=== PATIENT | male | born 1965 | race African-American/Black ===

== ENCOUNTER 2017-08-17 18:00 | Emergency (ER) | payer MEDICAID, SELFPAY ==
[2017-08-17 18:01] VITALS: BP 128/85; PULSE 109; RESP 16; TEMP 37.4; O2SAT 99; BMI 25.1
--- NOTE | 2017-08-17 18:19 | ED.DCSUM_ITS ---
- ER Visit Summary Date of Service: 08/17/17 Chief Complaint: Cough History of Present Illness: The patient is a 52 M presenting with cough, rhinorrhea, sore throat. Patient states this started on . He has a productive cough. He has had subjective fever and chills. He has diffuse myalgias. No abdominal pain, nausea, vomiting. No chest pain or shortness of breath. He is a smoker. Physical Examination: Vitals are stable. Temperature 99.4 Alert no acute distress. HEENT exam mild pharyngeal erythema with no exudate, uvula midline Neck is supple. No meningismus Lungs are clear and equal bilaterally. Heart is regular and tachycardic Abdomen is soft nontender nondistended. Extremities are unremarkable. Skin is warm and dry. No rash No focal neurologic deficit. Remainder of exam is unremarkable. Emergency Department Course and Treatment: Patient given IV fluids, Tylenol. CBC, chemistries are unremarkable. Strep and influenza are negative. Chest x- ray shows no acute process. Patient resting comfortably in the ED on reevaluation. He is given a prescription for Tessalon Perles. Advised to follow-up with Dr. Corbin iron caster for no doc. Advised return to ED for worsening complaints. Disposition: Discharge home Impression: Bronchitis This note was generated with [employer] dictation software. It may contain incorrect words, spelling, and punctuation that were not noted in review of the chart prior to signing ED Disposition - Plan for ED Patient: Chief Complaint: Cold Sx Referrals: Care Physician,No Primary [Primary Care Provider] -
[2017-08-17] MEDS: 0.9% Normal Saline 1,000 ML 999 ML IV (18:29)
[2017-08-17] MEDS: Acetaminophen 500 MG Tablet 1000 MG PO (18:30)
[2017-08-17 18:47] LABS: Absolute Lymphocyte Count 1.28 X10^3/ul (0.83-4.51); Absolute Neutrophil Count 4.7 X10^3/uL (2.0-7.7); Basophil# 0.02 X10^3/uL; Basophil% 0.3 % (0-1); Eosinophil# 0.06 X10^3/uL; Eosinophils% 0.9 % (0-5); Hematocrit 42.8 % (40-54); Hemoglobin 14.7 g/dl (13.0-16.5); Lymphocyte # 1.28 X10^3/ul (4.0); Mean Corp Hgb Conc 34.3 g/gl (32-36); Mean Corpuscular Hgb 31.1 pg (27.0-32.0); Mean Corpuscular Volume 90.5 fL (80-94); Mean Platelet Vol. 9.4 fl (6.2-12.0); Monocyte# 0.67 X10^3/uL; Monocyte% 9.9 % (0-10); Neutrophil # 4.72 X10^3/uL (2.7-7.7); Neutrophil % 69.9 % (47-70); POSITIVE COUNT NO; POSITIVE DIFFERENTIAL NO; POSITIVE MORPHOLOGY NO; Platelet Count 235 K/mm3 (150-450); RBC Distribution Width CV 12.9 % (11.6-14.6); RBC Distribution Width SD 42.8 fl (35.1-43.9); Red Blood Count 4.73 M/mm3 (4.6-6.2); White Blood Count 6.8 K/mm3 (4.4-11.0)
[2017-08-17 18:51] LABS: Anion Gap 4 (5-15); BUN 17 mg/dL (7-18); BUN/Creat Ratio 13.8 RATIO (10-20); Calcium,Total 8.6 mg/dL (8.5-10.1); Chloride 103 mmol/L (98-107); Creatinine, Serum 1.23 mg/dL (0.70-1.30); EST Glomerular Filtration Rate 66 mL/min (>60); Est Glom Filt Rate - Afr Amer 79 mL/min (>60); Estimated Creatinine Clearance 70.25 ml/min; Glucose 91 mg/dL (74-106); Potassium 3.9 mmol/L (3.5-5.1); Sodium Level 139 mmol/L (136-145)
--- NOTE | 2017-08-17 18:55 | RAD_ITS ---
STUDY: X-RAY CHEST REASON FOR EXAM: Male, 52 years old. Productive cough. TECHNIQUE: PA and lateral views of the chest. COMPARISON: None. FINDINGS: The lungs are clear and expanded. There is no demonstrated pleural abnormality. Normal size heart. Normal mediastinum and alban. Normal visualized pulmonary arteries. Normal visualized aortic arch and descending thoracic aorta. Normal visualized thoracic spine. Normal visualized ribs, clavicles, and shoulders. There is no demonstrated abnormality of the visualized soft tissue structures of the upper abdomen. RAD/Chest PA and Lateral IMPRESSION: No acute cardiopulmonary process. Electronically Signed: Traci Nicole MD at 19:31 EDT Tel , Service support ,
--- NOTE | 2017-08-17 20:05 | ED.DEP ---
ED Disposition - Plan for ED Patient: Chief Complaint: Cold Sx Instructions: ED Upper Resp Infec No Abx Tx Prescriptions: Benzonatate [Tessalon Perle] 200 mg PO TID PRN PRN #20 capsule PRN Reason: Cough Referrals: Care Physician,No Primary [Primary Care Provider] - Wali Corbin DO [STAFF PHYSICIAN] -
[2017-08-17 20:15] VITALS: BP 99/62; PULSE 98; RESP 18; O2SAT 95
== END 2017-08-17 20:16 | disposition home or self-care (01) ==
PROVIDERS: Emergency Provider Emergency Medicine
DX: J40 Bronchitis, not specified as acute or chronic (principal); F17.200 Nicotine dependence, unspecified, uncomplicated
CPT/HCPCS: 71046; 80048; 85025; 87804; 87880; 96360; 99283; J7030

== ENCOUNTER 2018-10-28 01:17 | Emergency (ER) | payer MEDICAID, SELFPAY ==
[2018-10-28 01:19] VITALS: TEMP 35.8; BMI 22.6
[2018-10-28 01:58] VITALS: BP 134/90; PULSE 99; RESP 21; O2SAT 95
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
--- NOTE | 2018-10-28 02:45 | ED.DEP ---
ED Disposition - Plan for ED Patient: Instructions: OVERDOSE, Opiate Referrals: Care Physician,No Primary [Primary Care Provider] -
[2018-10-28] MEDS: Ondansetron ODT 4 MG Tablet PO (02:51)
[2018-10-28 02:53] VITALS: BP 109/74; PULSE 106
--- NOTE | 2018-10-28 06:29 | CT_ITS ---
STUDY: CT BRAIN WITHOUT CONTRAST REASON FOR EXAM: Male, 53 years old. Overdose. Headache. RADIATION DOSAGE (If Supplied By Facility): CTDIvol = ( 44.99 ) mGy, DLP = ( 796.11 ) mGycm TECHNIQUE: Transaxial CT imaging of the brain was performed without administration of intravenous contrast material. Individualized dose optimization techniques were used for this CT. COMPARISON: No relevant priors. FINDINGS: Normal soft tissue structures. Normal calvarium. There is mild cerebral atrophy with widening of the extra-axial spaces and ventricular dilatation. Normal white matter tracts of the cerebral hemispheres. Normal basal ganglia and thalami. Normal brainstem. Normal cerebellum. There is no intracranial hemorrhage. There are no findings of an acute ischemic infarction. There is mucoperiosteal inflammatory disease of the paranasal sinuses consistent with mild chronic sinusitis. CT/Brain/Head without Contrast IMPRESSION: Chronic involutional changes of the brain. Electronically Signed: Kameron Bautista DO at 7:37 EDT Tel , Service support ,
[2018-10-28 07:59] VITALS: BP 122/91; PULSE 93; RESP 16
== END 2018-10-28 07:59 | disposition home or self-care (01) ==
PROVIDERS: Emergency Provider Emergency Medicine
DX: T40.4X1A Poisoning by other synthetic narcotics, accidental (unintentional), initial encounter (principal); R51 Headache; R11.0 Nausea; F11.10 Opioid abuse, uncomplicated; Y92.9 Unspecified place or not applicable; Z72.0 Tobacco use
CPT/HCPCS: 70450; 99285; J7030; A4216

== ENCOUNTER 2018-12-24 10:37 | Emergency (ER) | payer MEDICAID, SELFPAY ==
[2018-12-24 10:39] VITALS: BP 114/80; PULSE 101; RESP 17; TEMP 37; O2SAT 98; BMI 21.4
[2018-12-24 11:30] LABS: Bedside Glucose 94 mg/dL (70-110)
[2018-12-24 12:02] LABS: Bacteria 0 SEEN /hpf (None Seen); Mucous, Urine 0 SEEN /hpf (<or=2+)
[2018-12-24 12:04] LABS: Color, Urine Yellow (Yellow); Glucose, Dipstick Normal (Normal); Ketone-Dipstick Negative (Negative); Leukocyte Esterase-Dipstick 25 /ul (Negative); Nitrite-Dipstick Negative (Negative); Occult Blood-Urine 25 /ul (Negative); Protein-Dipstick Negative (Negative); Urine Clarity Clear (Clear); Urine Urobilinogen Normal (Normal)
[2018-12-24 12:19] LABS: Red Blood Cells-Urine 0-5 SEEN /hpf (0-5); Squamous Epithelial Cells - UA 0-5 SEEN /hpf (0-5); Urine Bilirubin Dipstick 1 mg/dL (Negative); White Blood Cells 0-5 SEEN /hpf (0-5)
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
[2018-12-24 13:39] LABS: Chlamydia Trachomatis by PCR Negative (Negative); Neisserai gonorrhoeae by PCR Negative (Negative); Probe Check PASS; Sample Adequacy Control PASS; Specimen Processing Control PASS
[2018-12-24] MEDS: Azithromycin 250 MG Tablet 2000 MG PO (13:52)
[2018-12-24] MEDS: Ceftriaxone 500 MG Vial 250 MG IM (14:18)
== END 2018-12-24 14:40 | disposition home or self-care (01) ==
PROVIDERS: Emergency Provider Nurse Practitioner
DX: N34.2 Other urethritis (principal); N41.9 Inflammatory disease of prostate, unspecified; L73.9 Follicular disorder, unspecified; M27.2 Inflammatory conditions of jaws; R30.0 Dysuria; S05.11XA Contusion of eyeball and orbital tissues, right eye, initial encounter; X58.XXXA Exposure to other specified factors, initial encounter; Y93.9 Activity, unspecified; Y92.9 Unspecified place or not applicable; Y99.9 Unspecified external cause status; M54.9 Dorsalgia, unspecified; G89.29 Other chronic pain; F17.200 Nicotine dependence, unspecified, uncomplicated; F19.11 Other psychoactive substance abuse, in remission; Z87.820 Personal history of traumatic brain injury
CPT/HCPCS: 10060; 81001; 82962; 87086; 87491; 87591; 96372; 99283

== ENCOUNTER 2019-01-06 11:24 | Emergency (ER) | payer MEDICAID, SELFPAY ==
[2019-01-06 11:25] VITALS: BP 134/93; PULSE 107; RESP 16; TEMP 37.1; O2SAT 98; BMI 21.5
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
== END 2019-01-06 13:58 | disposition home or self-care (01) ==
PROVIDERS: Emergency Provider Emergency Medicine
DX: S80.11XA Contusion of right lower leg, initial encounter (principal); Y08.02XA Assault by strike by baseball bat, initial encounter; Y93.9 Activity, unspecified; Y92.9 Unspecified place or not applicable; Y99.9 Unspecified external cause status; Z72.0 Tobacco use
CPT/HCPCS: 73564; 99284

== ENCOUNTER 2019-01-09 13:38 | Emergency (ER) | payer MEDICAID, SELFPAY ==
[2019-01-09 13:39] VITALS: BP 139/84; PULSE 111; RESP 16; TEMP 36.6; O2SAT 99
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
[2019-01-09] MEDS: Ibuprofen 600 MG Tablet PO (14:53)
[2019-01-09] MEDS: Acetaminophen 500 MG Tablet PO (14:53)
[2019-01-09] MEDS: Diphth,Pertuss(Acell),Tet Vac 0.5 ML Vial IM (14:54)
[2019-01-09 15:52] VITALS: BP 122/90; PULSE 97; RESP 18; O2SAT 100
== END 2019-01-09 15:53 | disposition home or self-care (01) ==
PROVIDERS: Emergency Provider Emergency Medicine
DX: S80.821A Blister (nonthermal), right lower leg, initial encounter (principal); S80.11XA Contusion of right lower leg, initial encounter; W22.8XXA Striking against or struck by other objects, initial encounter; Y93.9 Activity, unspecified; Y92.9 Unspecified place or not applicable; Y99.9 Unspecified external cause status; Z23 Encounter for immunization; F17.200 Nicotine dependence, unspecified, uncomplicated; Z87.820 Personal history of traumatic brain injury
CPT/HCPCS: 10160; 73590; 90715; 99281

== ENCOUNTER 2019-01-12 15:40 | Emergency (ER) | payer MEDICAID, SELFPAY ==
[2019-01-12 15:40] VITALS: BP 117/85; PULSE 109; RESP 18; TEMP 36.7; O2SAT 99; BMI 22.2
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
== END 2019-01-12 17:17 | disposition home or self-care (01) ==
PROVIDERS: Emergency Provider Physician Assistant
DX: S80.11XA Contusion of right lower leg, initial encounter (principal); W21.11XA Struck by baseball bat, initial encounter; Y93.9 Activity, unspecified; Y92.9 Unspecified place or not applicable; F17.200 Nicotine dependence, unspecified, uncomplicated
CPT/HCPCS: 99282